=== PATIENT | male | born 1960 | race Caucasian/White ===

== ENCOUNTER 2025-02-12 07:44 | Day surgery (SDC) | payer BC, SELFPAY ==
[2025-01-21 11:09] VITALS: BMI 37.4
--- NOTE | 2025-01-21 11:14 | HPS.HSE ---
Family Physician
-
Family Physician: NOT KNOW UNKNOWN - PT DOES
Chief Complaint
-
Persistent atrial fibrillation.
History of Present Illness
The patient is a 64 year old male presenting today for persistent atrial fibrillation. The patient is relatively asymptomatic with this diagnosis. He previously underwent 2 failed cardioversions in March 2022 and August 2022. He is on
current pharmacological therapy with Metoprolol Succinate. He overall tolerates this medication well with very little side effects reported. He reports that he has been compliant with Xarelto for oral anticoagulation. Because he would like to
minimize medical therapy and repeat cardioversions have been ineffective previously, it is recommended he proceed with pulmonary vein isolation for more definitive arrhythmia management. He denies any complaints today such as chest pain, shortness
of breath, nausea, vomiting, diarrhea, dizziness, cough, sore throat, or fever.
Medical History
Past Medical History
Past Medical History: Reports Other
Additional Past Medical History:
1. Persistent atrial fibrillation, status post cardioversion x2; pharmacological therapy with Metoprolol Succinate and oral anticoagulation with Xarelto.
2. Hypertension.
3. Left ventricular hypertrophy.
4. Obstructive sleep apnea, non-compliant with device.
5. Candidiasis of abdomen, current treatment with Fluconazole.
6. Osteoarthritis.
7. Obesity, BMI 37.4.
Past Surgical History: Reports Other
Additional Past Surgical History:
1. Cardioversion x2.
2. Right knee resurfacing.
3. Right knee arthroscopy x2.
Social History
Tobacco: Non-smoker
Alcohol: Other (Rare use reported since atrial fibrillation diagnosis. )
Personal:
Living: Other (He lives with his in a [facility] style home. )
Family History
Family History: Not pertinent
Allergies / Home Medications
Allergy/Medication List:
Home medications:
1. Metoprolol Succinate 50 mg p.o. daily.
2. Xarelto 20 mg p.o. at bedtime.
3. Fluconazole 200 mg p.o. as directed by dermatology.
Allergies: No known allergies.
Review of Systems
-
A 12 point ROS was completed and negative except as noted: Yes
Physical Exam
Vital Signs
Blood pressure 132/85. Heart rate 64. Respirations 18. Pulse ox 98% on room air.
Height 5 feet, 11.5 inches. Weight 123.4 kg. BMI 37.4.
Physical Exam
General: Well Developed, Well Nourished and No Apparent Distress
HEENT: NormoCephalic, Moist mucous membranes, Atraumatic and PERRLA
Respiratory: Clear
Cardiac: Irregular Rhythm
GI: Soft, Non Tender, Non Distended and Other (Obese. Mild rash on abdomen only. )
Musculoskeletal: No Edema and Normal Gait & Station
Skin: Warm and Dry
Neuro: AO x 3 and Nonfocal/grossly intact
Laboratory Results
-
DIAGNOSTIC STUDIES as of 01/21/2025: White blood cell count 6.6. Hemoglobin 15.2. Platelet count 202,000. PT 22.4. INR 1.92. Sodium 139. Potassium 4.1. BUN 18. Creatinine 0.8. Glucose 99. Calcium 9.5. Magnesium 2.2. AST 19. ALT 29. Albumin 4.4. Type
and screen A positive.
EKG 01/21/2025: Atrial fibrillation.
Chest CT 01/21/2025: Normal, conventional pulmonary venous anatomy. No left atrial filling defect/thrombus is identified.
Echocardiogram 07/20/2024: Left ventricular ejection fraction is 50-55%. Moderate LVH. Moderately dilated left atrium. No significant valvular abnormalities.
Impression/Plan
-
IMPRESSION/PLAN:
1. Persistent atrial fibrillation: The patient is in need of pulmonary vein isolation with Dr. Justin Polanco on 02/12/2025. The benefits and risks of the procedure have been explained to the patient. The patient understands these risks and wishes to
proceed. He will not be required to undergo a pre-procedural transesophageal echocardiogram as he has been compliant with his home oral anticoagulation. He is aware to continue his Xarelto uninterrupted prior to his procedure. He will take no
medications the morning of his ablation.
2. Candidiasis of abdomen: The rash is non-bothersome to the patient. He, thankfully, does not have it around his groin. 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 The patient is noticing a significant
improvement of his abdominal rash with his current treatment. He was advised to continue treatment until his prescription is finished. His rash is expected to clear up prior to his surgical date.
[2025-01-21 11:44] LABS: Hematocrit 46.0 % (39.0-52.0); Hemoglobin 15.2 g/dL (13.0-18.0); Mean Corp Hgb Conc. 33.0 g/dL (33.0-37.0); Mean Corpuscular Volume 93.9 fL (80.0-94.0); Nucleated Red Blood Cells % 0 % (-); Platelet Count 202 10^3/uL (130-400); Red Cell Dist. Width 12.9 % (11.5-14.5)
[2025-01-21 11:54] LABS: INR 1.92; PT 22.4 Sec (11.4-14.6)
[2025-01-21 11:55] LABS: ALT (SGPT) 29 U/L (0-50); AST (SGOT) 19 U/L (17-59); Albumin 4.4 g/dl (3.5-5.0); Alkaline Phosphatase 48 U/L (38-126); Blood Urea Nitrogen 18 mg/dl (9-20); Calcium 9.5 mg/dl (8.4-10.2); Carbon Dioxide 27 mmol/L (22-30); Chloride 107 mmol/L (98-107); Estimated Creatinine Clearance 122 ml/min; Glucose 99 mg/dl (70-99); Magnesium 2.2 mg/dl (1.6-2.3); Potassium 4.1 mmol/L (3.5-5.1); Sodium 139 mmol/L (135-145); Total Protein 7.4 g/dl (6.3-8.2); eGFR > 60.00
[2025-02-12] VITALS (11 sets, daily range): BP systolic 85–159; BP diastolic 60–95; BMI 36.4
[2025-02-12 11:59] LABS: ACT-LR - POC 350 Seconds (116-155)
[2025-02-12 12:19] LABS: ACT-LR - POC 324 Seconds (116-155)
--- NOTE | 2025-02-12 12:37 | ITS.CL.ABL ---
Guest Service Supervisor - Ablation
Ablation
Procedure Report:
ELECTROPHYSIOLOGY ABLATION STUDY
DATE:: 02/12/2025�����������������������������REFERRING: Dr. Maco Gardiner
INDICATION: Longstanding persistent supraventricular tachycardia in the form of atrial fibrillation.
HISTORY: See H and P. Longstanding persistent atrial fibrillation
ANTIARRHYTHMIC DRUG: Metoprolol
PRE-PROCEDURE YANNI: No intracardiac thrombus
PRESENTING RHYTHM: Atrial fibrillation
'TIME-OUT':��called and confirmed.
SEDATION/ANESTHESIA:��provided via the anesthesia department using general anesthesia (LMA).
INTRAVENOUS/ARTERIAL ACCESS:
Right femoral venous - 8Fr
Left femoral venous - 8 Fr, 6 Fr
Ultrasound guidance for bilateral femoral vein access was utilized by me to obtain access with demonstration of normal anatomy
CHADS-VASC Score:
HAS-Bled Score
PROCEDURE:
1.��A decapolar CS catheter was placed within the CS for mapping and pacing.��This was also used as the reference catheter for the 3-D map.
2. The intracardiac ultrasound catheter was positioned in the RA to identify the FO for targeting of transseptal puncture, assist��in identification of the pulmonary vein ostia, monitoring pre and post ablation pulmonary vein flow velocities,
monitoring for 'bubble' formation during RF application as a sign of thermal injury,��and to monitor for pericardial effusion during mapping and ablation procedure.���Left atrial size, LV ejection fraction, and pulmonary vein flows were monitored
pre and post ablation procedure. The other valves were inspected and found to be free of significant regurgitation or stenosis.
3.��Half of the calculated heparin bolus was administered prior to the first transeptal puncture.��Transseptal puncture was performed to diagnose RA and LA pressure so that safety of LA mapping and ablation could be further assessed, and to access
the left atrium and pulmonary veins for mapping and ablation.��This entailed advancing an 16.8 Spanish RF wire, sheath with dilator into the superior vena cava and withdrawing both (monitoring intracardiac ultrasound, fluoroscopy and tip pressure)
with the tip oriented toward the atrial septum.��The fossa ovalis was engaged (indicated by sudden displacement of the sheath tip as well as tenting of the fossa seen on intracardiac ultrasound).��Left atrial access required a pass with the
Brockenbrough needle extended.��Left atrial catheter position was confirmed by pressure monitoring (RA mean pressure 8 mm Hg and LA mean pressure 14 mm Hg), LA saturation (99%),��as well as fluoroscopy.��The sheath was advanced over the dilator and
positioned in the left atrium.��This procedure was repeated for the Agilis sheath.��The remainder of the calculated heparin bolus was administered and heparin was
infused to maintain ACT at 300 -350 seconds throughout the case.
4.��RA pacing was performed via the proximal decapolar poles and LA pacing was performed via the distal decapolar poles.
5. A quadrapolar catheter was first positioned at the His position for His Bundle recording which was tagged via the 3-D Navex sytem, and then passed to the RVA for RV pacing and recording.
6. The Penta spline catheter and the grid catheter placed in each of the LIPV, LSPV, RSPV and the RIPV.��
7.��Next, a 3-D map was created using Navex.���A 3-D reconstructed CT image was compared to the 3-D Navex map to assist in anatomic interpretation, mapping and ablation.��The CT image and the NavX image were fused.
8. A total of 57 lesions were given and all of in basket pose to the pulmonary veins and flower pose to the roof posterior wall and floor of left atrium with a roof or floor line. Atrial fibrillation persisted beyond the pulmonary vein isolation
with entrance block and the LA roof, posterior wall substrate and inferior line from left inferior pulmonary vein to right and for pulmonary vein was fashioned in flower pose. Atrial fibrillation persisted and the patient was converted to sinus
rhythm with 300 J synchronized biphasic shock. Entrance and exit block was confirmed in all 4 pulm veins as well as the roof posterior wall and floor of the left atrium. The patient was noninducible for other tachyarrhythmias post procedure.
9. Normal sinus node and AV node function noted 0.2 mg of glycopyrrolate was given post transseptal puncture
TOTAL FLOURO TIME: 14.1 minutes
TOTAL RF DURATION: 0 minutes
REVERSAL OF HEPARIN: 35 mg of protamine, slow IV administration
COMPLICATIONS:
None
Intracardiac US shows no pericardial effusion post ablation.
SUMMARY:��
Complex left atrial mapping and ablation.
Isolation of all 4 pulmonary veins with entrance and exit block as well as the LA roof posterior wall and floor of the left atrium with entrance and exit block.
RECOMMENDATIONS:
1. Ambulate in 4 hours
2. Resume anticoagulation
3.� Consider same-day discharge
4.��Outpatient follow-up with Dr. Maco Gardiner
Copy to: Dr. Maco Gardiner
--- NOTE | 2025-02-12 16:52 | W.PN.UPDATE ---
Update Note
Progress Note Update
64 yo WM s/p PVI (Same day). He denies cp, sob, shmuel diet, voiding, EKG SR, b/l groins c/d/i no HT. He will resume Xarelto in am as he took it this morning. He will continue metoprolol xl 50mg. Activity restrictions reviewed. He will f/u Dr. Gardiner.
He is for d/c home after 5pm.
== END 2025-02-12 16:58 | disposition home or self-care (01) ==
LOC: CATH 07:44
PROVIDERS: ATTENDING PHYSICIAN Internal Medicine Cardiovascular Disease; OTHER PHYSICIAN Internal Medicine Cardiovascular Disease
DX: I48.11 Longstanding persistent atrial fibrillation (principal); I47.10 Supraventricular tachycardia, unspecified; B37.9 Candidiasis, unspecified; E66.9 Obesity, unspecified; G47.33 Obstructive sleep apnea (adult) (pediatric); I10 Essential (primary) hypertension; I44.0 Atrioventricular block, first degree; Z68.37 Body mass index [BMI] 37.0-37.9, adult; M19.90 Unspecified osteoarthritis, unspecified site; Z79.01 Long term (current) use of anticoagulants; Z79.899 Other long term (current) drug therapy
CPT/HCPCS: C1892; C1769; C1732; C1894; C1730; 36415; 75572; 80053; 83735; 85025; 85347; 85610; 86850; 86900; 86901; 93005; 93656; 93657; C1733; C1766; Q9967

== ENCOUNTER 2025-02-13 23:26 | Inpatient (IN) | payer BC, SELFPAY ==
[2025-02-13 16:45] VITALS: BP 117/64; BP 119/64
[2025-02-13 17:09] LABS: Hematocrit 41.2 % (39.0-52.0); Hemoglobin 13.7 g/dL (13.0-18.0); Mean Corp Hgb Conc. 33.3 g/dL (33.0-37.0); Mean Corpuscular Volume 94.3 fL (80.0-94.0); Nucleated Red Blood Cells % 0 % (-); Platelet Count 194 10^3/uL (130-400); Red Cell Dist. Width 13.5 % (11.5-14.5)
[2025-02-13 17:25] LABS: ALT (SGPT) 25 U/L (0-50); AST (SGOT) 45 U/L (17-59); Albumin 4.4 g/dl (3.5-5.0); Alkaline Phosphatase 45 U/L (38-126); Blood Urea Nitrogen 23 mg/dl (9-20); Calcium 9.2 mg/dl (8.4-10.2); Carbon Dioxide 27 mmol/L (22-30); Chloride 107 mmol/L (98-107); Glucose 107 mg/dl (70-99); Potassium 4.3 mmol/L (3.5-5.1); Sodium 139 mmol/L (135-145); Total Protein 7.1 g/dl (6.3-8.2); eGFR > 60.00
[2025-02-13 17:50] LABS: Troponin I 4.200 ng/ml
[2025-02-13 19:08] VITALS: BMI 36.9
--- NOTE | 2025-02-13 19:14 | ED.GENMED ---
History of Present Illness
General
Chief Complaint: Chest Pain
Time Seen by Provider: 02/13/25 19:02
Nursing documentation reviewed up to this point in time: agreed with
History of Present Illness
History of Present Illness:
58 sexual male presents the ER for evaluation of squeezing chest pain in both anterior and posterior chest with exertion throughout the day today. Patient is 1 day status post ablation with Dr. Polanco for atrial fibrillation. He states that prior
to this procedure he did not experience any symptoms with episodes of A-fib, nor has he had any prior personal history of ACS. He states that he is also noted throughout the day today intermittent feeling of a waviness to the vision in his left eye
only which seems to be provoked more with activity. At time of evaluation he has no chest pain. He reports dyspnea with exertion, none at the current time. He denies peripheral edema. No syncope or trauma. He is on anticoagulation with Xarelto.
He denies abdominal pain, paresthesias or weakness to his extremities
Review of Systems
Review of Systems
Allergies reviewed?: Yes
Phy Exam
Physical Exam
Physical Exam:
Patient is awake, alert, appears in no acute distress, head is NCAT, PERRL, EOMI mucous membranes moist, conjunctiva pink, heart regular rate and rhythm without murmurs or ectopy,, no JVD, lungs are clear to auscultation without wheezes rales or
rhonchi, no JVD, abdomen is soft and nontender on palpation, extremities without edema, 2+ DP and radial pulses symmetric, moving all extremities symmetrically without focal deficit, GCS is 15
Scores
Heart Score for Chest Pain Patients
STEMI patient?: No
History: Highly Suspicious
ECG: Normal
Age: >/= 65 years
Risk Factors: No Risk Factors
Troponin: >/= 3 x Normal Limit
Heart Score for Chest Pain Patients: 6
Heart Score Risk: 20.3% MACE over next 6 weeks
Course
Orders/Labs/Results
Orders:
Orders
02/13/25 16:41
ECG [Electrocardiogram (*1)] Urgent
Reason for Study: Chest Pain
EKG- Treatment ONCE
02/13/25 16:55
Complete Blood Count/With Diff Urgent
Comprehensive Metabolic Panel Urgent
Troponin I Urgent
02/13/25 19:03
Electrocardiogram (*1) Urgent
Reason for Study: Chest Pain
EKG- Treatment ONCE
CR Chest Portable - 1 View Urgent
Comment:
Reason For Exam: chest pain
Reason Study Needs to be Portable: Unable to Transport
02/13/25 19:25
CT Head & Neck Angio W/wo IV Urgent
Comment: affecting L eye only, 1 day s/p ablation for afib
Reason For Exam: intermittent visual disturbance
02/13/25 19:29
Troponin I Urgent
02/13/25 21:14
Heparin 4,000 units IV NOW STA
Nursing to Place Non Medication Order As Directed
Physician Order: PTT 6 hours after initial start of Heparin infusion
Above order entered?: Yes
02/13/25 21:15
Heparin 48618 Units/250 ml 25,000 units in 250 ml IV PER PROTOCOL
Weight to be used for heparin protocol in kilograms (kg):: 123.2
Protocol:: Cardiac Tx/Acute Coronary
PTT Goal Range to be used:: PTT 73 to 111 seconds
Order type:: Initial
INITIAL Infusion Dose (UNITS/KG/hr) & then follow protocol:: 12 units/kg/hr
Infusion Dose in UNITS/hr & then follow protocol (UNITS/hr):: 1,000
INFUSION RATE in mL/hr & then follow protocol (mL/hr):: 10
PTT less than or equal to 64 seconds:: Increase rate by 200 units/hr (+ 2 mL/hr)
PTT 64.1 to 72.9 seconds:: Increase rate by 100 units/hr (+ 1 mL/hr)
PTT 73 to 111 seconds:: Target Range. No change in rate.
PTT 111.1 to 130.9 seconds:: Decrease rate by 100 units/hr (- 1 mL/hr)
PTT 131 to 199.9 seconds:: HOLD for 1 hr. Then decrease rate by 200 units/hr (- 2 mL/hr)
PTT greater than or equal to 200 seconds:: HOLD for 2 hrs & Notify Provider. Then decrease by 200 units/hr (-
2 mL/hr)
Lab follow-up:: Each change, PTT q6h until 2 consecutive are therapeutic. Then PTT
daily.
02/13/25 21:17
PTT Urgent
Comment: Obtain baseline before beginning heparin infusion if not already collected
02/14/25 03:40
PTT Urgent
Comment: Obtain baseline before beginning heparin infusion if not already collected
Abnormal Lab Results
02/13/25 02/13/25
16:55 19:29
WBC 14.2 H 10^3/uL
(4.8-10.8)
RBC 4.37 L 10^6/uL
(4.70-6.10)
MCV 94.3 H fL
(80.0-94.0)
MCH 31.4 H pg
(27.0-31.0)
Abs Immat Gran (auto) 0.1 H 10^3/uL
(0-0.05)
Absolute Neuts (auto) 11.4 H 10^3/uL
(1.4-6.5)
Absolute Monos (auto) 0.9 H 10^3/uL
(0.1-0.6)
Neutrophils % 80.5 H %
(42.2-75.2)
Lymphocytes % 11.2 L %
(20.5-51.1)
BUN 23 H mg/dl
(9-20)
Glucose 107 H mg/dl
(70-99)
Troponin I 4.200 H* ng/ml 4.110 H* ng/ml
02/13/25 16:55
02/13/25 16:55
Vital Signs
Initial and Last Documented VS:
Initial Vital Signs
Temp Pulse Resp BP Pulse Ox
97.9 F 76 16 117/64 99
02/13/25 16:45 02/13/25 16:45 02/13/25 16:45 02/13/25 16:45 02/13/25 16:45
Last Documented Vital Signs
Temp Pulse Resp BP Pulse Ox
97.9 F 58 12 122/70 100
02/13/25 16:45 02/13/25 21:45 02/13/25 21:45 02/13/25 21:00 02/13/25 21:45
MDM/Problems Addressed
Differential Diagnosis Includes:
Differential diagnosis to consider but not limited to TIA, ACS, dehydration, intracranial hemorrhage along with other etiologies considered
Chronic conditions affecting care:
Atrial fibrillation status post ablation on anticoagulation
*Radiology
Radiology exam reviewed: preliminary read by ED provider (I independent viewed interpreted peripheral chest x-ray showing normal cardiac silhouette, no focal infiltrates)
*Pulse Oximetry
SaO2: 100
Oxygen Mode of Delivery: Room air
Patient hypoxic: no
*EKG
Interpreted by ED Provider?: Yes (Independent viewed and interpreted 12 EKG showed sinus rhythm with first-degree AV block, no ectopy, rate 79, normal axis, no ST elevation, this is a minimally abnormal tracing without evidence for acute STEMI. No
change compared to prior from 02/12/2025)
*Tornado Chaser Interpretation
Rate: normal (I independently viewed and interpreted rhythm strip showing sinus rhythm with first-degree AV block, no ectopy)
*Critical Care Note
Total Time (30-74mins, 75-104mins- exclusive of procedures): Not Applicable
Update Note
Update Note:
1909: I reviewed full patient presentation, history, EKG and initial troponin with on-call cardiology attending, Dr. Haney. He would feel that troponin is likely related to recent procedure, but would recommend admission for heparin initiation
and trending of troponins. Given described visual disturbance, will obtain CT angio of head and neck to assess for stroke/TIA prior to initiation of heparin drip.
Late entry-once all test results available including CT angio head and neck, I reviewed this information with the patient and present at bedside. I discussed with them the need for admission for anticoagulation and further evaluation. They
agree. Patient has no chest pain at time of reevaluation. Repeat EKG does not show any evidence for ST elevation. I reviewed full patient presentation with the hospitalist who accepts patient for admission for further evaluation of chest pain
with elevated troponins and TIA.
ED Attending Note
-
Portions of this chart may have been created with voice recognition software.� Occasional wrong word or��sound alike� substitutions may have occurred due to the inherent limitations of voice recognition software.
Discharge Plan
Departure
Patient Disposition: Admit
Date of Disposition: 02/13/25
Time of Disposition: 21:45
Presentation/result/management discussed w/ accepting MD/DO: Hospitalist
Discharge Problem:
Chest pain, Elevated troponin I level, Monocular visual disturbance
Prescriptions:
No Action
metoprolol succinate 50 mg Capsule,Sprinkle,Er 24hr
50 mg PO DAILY
Xarelto 20 mg Tablet
20 mg PO DAILY Qty: 0 0RF
Referrals:
UNKNOWN - PT DOES,NOT KNOW [Family Provider]
Interventions
Interventions:
*Risk Screen - Suicide Last Done: 02/13/25 16:45
*General Assessment Last Done: 02/13/25 16:50
*Neglect/Abuse Screening Last Done: 02/13/25 16:50
*ED- Fall Risk Assessment Last Done: 02/13/25 19:08
*ED COVID-19 Vaccine History Last Done: 02/13/25 19:08
ED- Cardiac Assessment Last Done: 02/13/25 19:08
Discharge Date and Time
Print Language: NIGERIEN
[2025-02-13 20:02] VITALS: BP 124/68
[2025-02-13 20:11] LABS: Troponin I 4.110 ng/ml
[2025-02-13 21:00] VITALS: BP 122/70
[2025-02-13] MEDS: HEPARIN 4000 UNITS IV (21:34)
[2025-02-13] MEDS: HEPARIN 25000 UNITS/250 ML IV (21:35)
[2025-02-13 21:41] LABS: APTT 28.8 Sec (23.4-35.0)
[2025-02-13 22:00] VITALS: BP 105/70
--- NOTE | 2025-02-13 22:15 | HPS.HSE ---
Family Physician
-
Family Physician: NOT KNOW UNKNOWN - PT DOES
Chief Complaint
-
Chest pain
History of Present Illness
64-year-old male with history of A-fib only cardiac ablation yesterday here in the hospital and strong family supplements coronary artery disease father in 50s from myocardial infarction, presented to the hospital today after he was home when
walking around and developed sudden pain moderately severe centrally located radiating to the back between the shoulder blade after a short walk and when he stopped and rested the pain eventually went away, and he had to walk home with like an
uphill with his dog few steps by the time he mated up to his porch the pain came back when he sat down on the porch and disappear again, denied any associated sweating or nausea or vomiting or any other relieving or aggravating factor, admitted when
he sat down on the porch she had some tweaking and change of vision in the left eye without any weakness or numbness in extremity no palpitation no any dizziness, no urinary or bowel symptoms.
Therefore he decided to come to the hospital where CT brain and CTA head and neck showed no acute abnormality while troponin of more than 4, cardiology contacted by the ER physician who recommended holding his Xarelto and starting heparin drip.
Currently awake, alert and oriented x 3 and able to provide little information and asymptomatic and accompanied by the at the bedside.
Medical History
Past Medical History
Past Medical History: Reports Other
Additional Past Medical History:
Past medical history:
A-fib
Hypertension
Strong family history of premature coronary artery disease
Surgical history:
Cardiac ablation on February 12, 2025
Right knee arthroscopy
Social history: lives with the independently, no smoking or drug use drinks alcohol once a month.
Family history: Reviewed and strongly positive for premature coronary artery disease, hypertension
Past Surgical History: Reports Other
Social History
Unable to obtain full social history at this time due to: Other
Family History
Family History: Other
Allergies / Home Medications
Allergies reflects when Allergies were last updated in [facility].
Home Medications with original date entered in [facility]
Allergy/Medication List:
Allergies
Allergy/AdvReac Type Severity Reaction Status Date / Time
No Known Allergies Allergy Unverified 02/12/25 08:03
Home Medications
metoprolol succinate 50 mg capsule sprinkle, ext. release 24 hr 50 mg PO DAILY 01/19/25
rivaroxaban 20 mg tablet (Xarelto) 20 mg PO DAILY #0 tabs 02/12/25
Review of Systems
-
A 12 point ROS was completed and negative except as noted: Yes
Physical Exam
Vital Signs
Vital Signs
Temp Pulse Resp BP Pulse Ox
97.9 F 79 15 105/70 100
02/13/25 16:45 02/13/25 22:00 02/13/25 22:00 02/13/25 22:00 02/13/25 21:45
Physical exam:
General: Awake, alert and oriented x3, overweight not in distress and holds appropriate conversation.
HEENT: No active discharge, ecchymosis or bruising, moist lips, tongue and mucous membrane.
Eyes: No discharge or red conjunctiva, no nystagmus, pupils are reactive and equal
Neck:Supple, no JVD no bruit no goiter.
Respiratory: Normal AP contour and diameter, normal chest wall movement, normal respiratory effort, no respiratory distress,
Lungs: Good air entry bilaterally, no wheezing or rhonchi, no rales or crackles
Heart: S1, S2 regular, normal rate, no added sound.
Gastrointestinal: Positive bowel sounds, soft, nontender, globular, no guarding or rigidity or organomegaly
Musculoskeletal: , no chest wall abnormality or tenderness. All joints and extremities have good range of motion, no muscle tenderness or any joint swelling or tenderness.
Extremities: No pitting edema, good peripheral pulses, good range of motion
Skin: Warm and dry, no ulceration, normal color.
Neurological: Awake, alert and oriented x3, cranial nerve II-XII grossly intact, speech clear and comprehensive, good muscle tone, normal sensory and motor function, no facial droop, extension and attention intact, cerebellar sign intact, NIH score 0
Psychiatric: Normal mood, normal thought and judgment, normal affect,
Physical Exam
General: Other
Laboratory Results
-
02/13/25 16:55
02/13/25 16:55
Laboratory Results
APTT 28.8 Sec (23.4-35.0) 02/13/25 21:17
Total Bilirubin 0.6 mg/dl (0.2-1.3) 02/13/25 16:55
AST 45 U/L (17-59) 02/13/25 16:55
ALT 25 U/L (0-50) 02/13/25 16:55
Alkaline Phosphatase 45 U/L (38-126) 02/13/25 16:55
Troponin I 4.110 ng/ml H* 02/13/25 19:29
CT Brain: No acute intracranial process. Specifically, no evidence of acute hemorrhage.
CTA Head: No significant arterial stenosis. No large vessel occlusion. No aneurysm.
CTA Neck: No significant arterial stenosis. Mild atherosclerotic calcifications of the bilateral carotid bifurcation without significant stenosis.
4 mm groundglass opacity within the apical right upper lobe which is nonspecific and may be infectious/inflammatory in nature. A 6-12 month follow-up CT chest may be considered if the patient is considered high risk.
Chest x-ray: No acute cardiopulmonary abnormality
EKG done and reviewed shows sinus rhythm with first-degree AV block, rate around 69, PA 302, QT 408 otherwise no acute abnormalities
Data Reviewed
-
Diagnostic Radiology: Image Personally Visualized and interpreted, Discussed with Patient and Discussed with Family
CT Scan: Image Personally Visualized and interpreted, Discussed with Patient and Discussed with Family
Medical Tests (Nuc Med, Echo, EKG etc): Image Personally Visualized and interpreted and Report Reviewed by me
Lab Data: Labs Reviewed by me, Discussed with Patient and Discussed with Family
Old Records: Reviewed
Impression/Plan
-
IMPRESSION:
64-year-old male who had a cardiac ablation yesterday, today presented to the hospital complaining of couple episode of centrally located moderate intensity chest pain short-lived and relieved after rest both condition workup showed elevated
troponin and had some vision changes currently concerning for TIA or stroke specially after ablation.
Acute chest pain:
His symptoms can concerning
Acute coronary syndrome may need to be considered rule out specially with family history of premature coronary artery disease and other risk factor
Started on heparin drip per pasteuriser operator recommendation
Continue Toprol
On aspirin and statin
Check lipid panel and A1c
Monitor vital sign and monitor for any kind of bleeding
Hold his Xarelto
Defer further workup to cardiology.
Elevated troponin: Possibly related to acute coronary syndrome while post ablation could be a possibility.
Vision change in the left eye, with yesterday having arterial access and history of A-fib was therefore concern for thromboembolization or lead to a stroke or TIA need to be considered
CTA head and neck and CT brain all showed no acute abnormality
Get MRI of brain to complete the workup.
A-fib: Status post ablation yesterday
Continue Toprol
Hold Xarelto while he is on heparin drip.
All discussed with the patient and the in detail and expressed understanding of the question answered
CODE STATUS full code
[2025-02-13 23:00] VITALS: BP 118/82
[2025-02-14] VITALS (14 sets, daily range): BP systolic 89–150; BP diastolic 41–92; PULSE 60–78; BMI 36.9; BMI 36.7
[2025-02-14 00:05] LABS: Troponin I 3.790 ng/ml
--- NOTE | 2025-02-14 02:18 | PTCARENOTE ---
received pt from ED. Pt aaox3 able to make needs known. Pt states that his chest pain has resolved. No complaints of pain at this time. Remains on heparin gtt @10ml/hr. Next PTT due at 03:40. NIH 0, states that the blurred vision in his L eye has
resolved as well. No other neurological deficits. MRI in AM. VSS. NSR/SB on monitor. Pt resting comfortably in bed at this time. Care ongoing.
[2025-02-14 04:36] LABS: Hematocrit 37.0 % (39.0-52.0); Hemoglobin 12.5 g/dL (13.0-18.0); Mean Corp Hgb Conc. 33.8 g/dL (33.0-37.0); Mean Corpuscular Volume 93.4 fL (80.0-94.0); Platelet Count 165 10^3/uL (130-400); Red Cell Dist. Width 13.7 % (11.5-14.5)
[2025-02-14 04:40] LABS: APTT 32.8 Sec (23.4-35.0)
[2025-02-14 04:59] LABS: Blood Urea Nitrogen 25 mg/dl (9-20); Calcium 8.9 mg/dl (8.4-10.2); Carbon Dioxide 25 mmol/L (22-30); Chloride 110 mmol/L (98-107); Estimated Creatinine Clearance 123 ml/min; Glucose 106 mg/dl (70-99); HDL Cholesterol 29 mg/dl; LDL Cholesterol, Calculated 97 mg/dl; Potassium 3.8 mmol/L (3.5-5.1); Sodium 140 mmol/L (135-145); Very Low Density Lipoprotein 28 mg/dl (0-30); eGFR > 60.00
[2025-02-14 05:11] LABS: Troponin I 4.400 ng/ml
--- NOTE | 2025-02-14 08:31 | W.PN.HOSP.TC ---
Today's Communication/Plan
-
transfer to IVU
workup per cards
Assessment / Plan
Assessment / Plan
pt is a 64 year old male
NSTEMI--apprec cards--transfer to IVU--holding xarelto and now on heparin drip--troponin still above 4--further w/u per cards--check lipids--cont toprol, asa, statin
Vision change in the left eye, with yesterday having arterial access and history of A-fib was therefore concern for thromboembolization or lead to a stroke or TIA need to be considered--all workup negative--resolved
presumed persistent A-fib: Status post ablation 02/12/25--toprol, heparin drip--transfer to IVU
CODE STATUS -- full code
Anticipated Discharge: > 48 hours
Subjective/Interval History
-
Date of Service: February 14, 2025
pt only has symptoms when he walks
Objective Data
-
Labs:
Laboratory Results
02/13/25 02/14/25 02/14/25
21:17 03:58 11:00
WBC 9.7
Hgb 12.5 L
Hct 37.0 L
Plt Count 165
APTT 28.8 32.8 Pending
Sodium 140
Potassium 3.8
Chloride 110 H
Carbon Dioxide 25
BUN 25 H
Creatinine 0.8
Glucose 106 H
Calcium 8.9
Vital Signs:
max temp for 24 hours
02/13/25
16:45
Temp 97.9 F
Vital Signs
Temp Pulse Resp BP Pulse Ox
97.8 F 62 18 93/61 97
02/14/25 04:35 02/14/25 06:35 02/14/25 06:35 02/14/25 06:35 02/14/25 06:35
I&O
02/13/25 02/14/25 02/15/25
06:59 06:59 06:59
Output Total 1000 / 1000
Balance -1000 / -1000
Review of Systems
-
All other systems: Reviewed and negative
Physical Exam
-
General: Well Developed, Well Nourished and No Apparent Distress
HEENT: Normocephalic and Atraumatic; Negative Oxygen
Respiratory: Clear to Auscultation; Negative Wheezes or Rhonchi
Cardiac: Regular Rhythm and S1/S2; Negative Murmur
GI: Soft, Nontender, Nondistended and Normal Bowel Sounds
Musculoskeletal: No Clubbing, No Cyanosis and No Edema
Neuro: Awake
[2025-02-14 09:18] LABS: Glycohemoglobin (HgbA1c) 5.7 % (4.0-5.6)
--- NOTE | 2025-02-14 09:45 | CON.CAR ---
Consultation
Consultation Request
Date/Time Consultation Requested: 02/13/25
Date/Time Consultation Performed: 02/14/25
Requesting Provider: Jose
Performing Provider: Angie
Reason for Consultation: chest pain
Medical History
-
Chief Complaint: chest pain
History of Present Illness:
64-year-old man past medical history of persistent atrial fibrillation who underwent pulmonary vein isolation earlier this week who presented to [place] emergency department for evaluation of chest discomfort. Patient tells me he was feeling
well on the morning of 02/13/2025. He was working around his property and in the backyard and developed exertional chest and back discomfort. Describes this more so as a tightness or pressure, more so in the back than the chest. He rested and his
symptoms resolved. However when he started to exert himself symptoms recurred. He also had associated blurry vision in the left eye which he tells me he has experienced in the past. Given the constellation of symptoms he presented to [facility]
emergency department for evaluation.
Initial troponin was found to be elevated 4.2 and then downtrended. However multiple troponins were tracked and most recently 4.40. ECG showed sinus rhythm with no obvious ischemic changes. Chest x-ray was unremarkable. Given vision changes CTA
head/neck was performed and was not suggestive of acute CVA.
At the time my evaluation patient was resting comfortably in the IMU. He is not having any further chest discomfort. Vision changes have resolved.
Tells me no associated dyspnea, orthopnea/PND or lower extremity edema over the past few days.
PMHx:
A-fib s/p PVI (02/12/25)
Hypertension
Right knee arthroscopy
Past Medical History
Past Medical History: Other (as above)
Past Surgical History: Other (as above)
Social History
Tobacco: Non-Smoker
Alcohol: Occasional
Personal:
Living: With Family
Family History
Family History: CAD
Allergies / Home Medications
Allergy/AdvReac Type Severity Reaction Status Date / Time
No Known Allergies Allergy Unverified 02/12/25 08:03
�Medication �Instructions �Recorded �Confirmed �Type
metoprolol succinate 50 mg capsule 50 mg PO DAILY 01/19/25 02/13/25 History
sprinkle, ext. release 24 hr
rivaroxaban 20 mg tablet (Xarelto) 20 mg PO DAILY #0 tabs 02/12/25 02/13/25 Rx
Review of Systems
-
History Source: Patient
All other systems: Negative unless noted
Physical Exam
Vital Signs
Temp Pulse Resp BP Pulse Ox
97.9 F 54 10 105/71 96
02/14/25 07:52 02/14/25 08:00 02/14/25 08:00 02/14/25 08:00 02/14/25 08:00
Lab Results
02/14/25 03:58
02/14/25 03:58
Troponin I 4.400 ng/ml H* 02/14/25 03:58
Troponin I Cancelled 02/14/25 03:58
Physical Exam
General: Well Developed
HEENT: Normocephalic
Respiratory: Clear
Cardiac: S1/S2 and Regular Rhythm
GI: Soft
Musculoskeletal: No Edema
Skin: Warm and Dry
Neuro: AO x 3
Psych: Calm
Impression / Plan
-
Tube Skiver: Abdifatah
EP: Polanco
Assessment:
Chest pain
Elevated troponin
A-fib s/p PVI (02/12/25)
Hypertension
Plan:
-Patient presents with chest discomfort following ablation. As would be expected post ablation troponin is elevated and overall relatively flat.
-Most common explanation for his symptoms would be inflammation following PVI ablation - essentially iatrogenic myocarditis. However, differential includes coronary artery spasm, thromboembolism of a coronary artery, acute CHF or Type 1 SD.
-For now would treat medically for ACS with aspirin, high intensity statin, beta-hayley and heparin drip x 48 hours
-Check transthoracic echocardiogram to evaluate for cardiomyopathy, segmental wall motion abnormality or pericardial effusion
-For completeness add proBNP to lab work although no clear evidence of decompensated heart failure based on physical exam
-Plan for ischemic evaluation prior to discharge. Tentatively pharmacologic nuclear stress test on Sunday for further risk stratification. Patient would be hesitant to undergo coronary angiography based on our discussion this morning.
Data Reviewed
-
EKG: Tracing Personally Visualized and interpreted
Radiology: Image Personally Visualized and interpreted
CT Scan: Report Reviewed by me
Medical Tests (Nuc Med, Echo etc): Report Reviewed by me
Labs: Labs Reviewed by me
Old Records: Reviewed
[2025-02-14] MEDS: TOPROL XL 50 MG PO (10:05)
[2025-02-14] MEDS: LOW STRENGTH ASPIRIN 81 MG PO (10:05)
--- NOTE | 2025-02-14 11:12 | PTCARENOTE ---
Rec'd report from [facility] on IMU, Pt transferred to IVU, A,A+OX3, denies chest pain, denies vision issues. VSS.
[2025-02-14 11:23] LABS: APTT 39.6 Sec (23.4-35.0)
[2025-02-14 11:50] LABS: Troponin I 4.280 ng/ml
--- NOTE | 2025-02-14 12:15 | PTOTSP ---
Speech-Language Evaluation
Pt seen in room for bedside swallow assessment with HOB elevated. Pt seen with PO trials of regular solids and thins (via open cup and straw). Oral phase WFL with adequate acceptance, functional mastication, bolus formation, ap transfer, and oral
clearance. Pharyngeal phase characterized by no overt s/sx of aspiration, clear vocal quality, and no breath changes. Pt is not at an increased risk of aspiration at this time.
Recommendation:
1.IDDSI 7 Regular solids, IDDSI 0 Thin liquids
2. Meds as best tolerated
[2025-02-14] MEDS: CRESTOR 20 MG PO (17:47)
[2025-02-14 18:42] LABS: APTT 41.0 Sec (23.4-35.0)
--- NOTE | 2025-02-15 01:00 | PTCARENOTE ---
Received pt @ change of shift. AAOx3, VSS-- SB with first degree, occasional PACs on monitor. OOB in chair; bedside. Heparin gtt running @ 1400 units/hr through left AC. Neuro check- normal, NIHSS-- normal. L groin site SANDI. R groin site clean,
dry, and intact. Denies any pain or vision changes @ this time. Discussed plan of care. Pt verbalizes understanding. Call alston within reach.
[2025-02-15 02:37] VITALS: BP 122/82
[2025-02-15 02:49] LABS: Hematocrit 37.7 % (39.0-52.0); Hemoglobin 12.5 g/dL (13.0-18.0); Mean Corp Hgb Conc. 33.2 g/dL (33.0-37.0); Mean Corpuscular Volume 93.1 fL (80.0-94.0); Platelet Count 149 10^3/uL (130-400); Red Cell Dist. Width 13.7 % (11.5-14.5)
[2025-02-15 02:54] VITALS: BMI 36.6
[2025-02-15 02:59] LABS: APTT 63.2 Sec (23.4-35.0)
[2025-02-15 03:12] LABS: Troponin I 2.070 ng/ml
[2025-02-15 03:30] LABS: ALT (SGPT) 39 U/L (0-50); AST (SGOT) 28 U/L (17-59); Albumin 3.7 g/dl (3.5-5.0); Alkaline Phosphatase 43 U/L (38-126); Blood Urea Nitrogen 23 mg/dl (9-20); Calcium 8.6 mg/dl (8.4-10.2); Carbon Dioxide 27 mmol/L (22-30); Chloride 110 mmol/L (98-107); Estimated Creatinine Clearance > 125 ml/min; Glucose 98 mg/dl (70-99); Magnesium 2.2 mg/dl (1.6-2.3); Potassium 4.2 mmol/L (3.5-5.1); Sodium 140 mmol/L (135-145); Total Protein 6.2 g/dl (6.3-8.2); eGFR > 60.00
[2025-02-15 07:00] VITALS: BP 116/74
[2025-02-15] MEDS: HEPARIN 25000 UNITS/250 ML IV ×2 (07:05→19:39)
--- NOTE | 2025-02-15 08:31 | W.PN.HOSP.TC ---
Today's Communication/Plan
-
cancel MRI
for stress test tomorrow
Assessment / Plan
Assessment / Plan
pt is a 64 year old male
NSTEMI (chest pain after walking)--apprec cards--holding xarelto and now on heparin drip--troponin peaked at 4.4 now down to 2.0--further w/u per cards, plan for stress test Sunday but pt not sure he wants to undergo cath--lipids with Tchol 154 LDL
97--cont toprol, asa--statin started this admission as LDL not at goal
Vision change in the left eye, with yesterday having arterial access and history of A-fib was therefore concern for thromboembolization or lead to a stroke or TIA need to be considered--all workup negative--pt has had this vision change off and on
for years--will cancel MRI--resolved--should follow up with outpt ophthalmology
presumed persistent A-fib: Status post ablation 02/12/25--toprol, heparin drip--remains in sinus rhythm
DVT proph--heparin drip
CODE STATUS -- full code
Anticipated Discharge: > 48 hours
Subjective/Interval History
-
Date of Service: February 15, 2025
pt without c/o--asking about whether he needs a cath
Objective Data
-
Labs:
Laboratory Results
02/15/25 02/15/25
02:41 09:15
WBC 7.8
Hgb 12.5 L
Hct 37.7 L
Plt Count 149
APTT 63.2 H Pending
Sodium 140
Potassium 4.2
Chloride 110 H
Carbon Dioxide 27
BUN 23 H
Creatinine 0.7
Glucose 98
Calcium 8.6
Total Bilirubin 0.6
AST 28
ALT 39
Alkaline Phosphatase 43
Vital Signs:
max temp for 24 hours
02/14/25
15:21
Temp 98.0 F
Vital Signs
Temp Pulse Resp BP Pulse Ox
98 F 56 20 116/74 97
02/15/25 07:00 02/15/25 08:00 02/15/25 07:00 02/15/25 07:00 02/15/25 07:00
I&O
02/14/25 02/15/25 02/16/25
06:59 06:59 06:59
Output Total 1000 / 1000
Balance -1000 / -1000
Review of Systems
-
All other systems: Reviewed and negative
Physical Exam
-
General: Well Developed, Well Nourished and No Apparent Distress
HEENT: Normocephalic and Atraumatic
Respiratory: Clear to Auscultation; Negative Wheezes or Rhonchi
Cardiac: Regular Rhythm and S1/S2; Negative Murmur
GI: Soft, Nontender, Nondistended and Normal Bowel Sounds
Musculoskeletal: No Clubbing, No Cyanosis and No Edema
Neuro: Awake
Psych: Calm
[2025-02-15] MEDS: LOW STRENGTH ASPIRIN 81 MG PO (08:45)
[2025-02-15] MEDS: TOPROL XL 50 MG PO (08:45)
--- NOTE | 2025-02-15 10:12 | PTCARENOTE ---
Patient seen by Dr. Sauceda this morning and MRI, neuro checks and NIH cancelled. Patient denies any chest pain or visual disturbances. IV heparin infusing as per protocol, bilateral groins are HEATING WORKER, for stress test tomorrow.
[2025-02-15 10:23] LABS: APTT 74.6 Sec (23.4-35.0)
--- NOTE | 2025-02-15 10:40 | W.PN.CARDCBS ---
Addendum entered and electronically signed by Doreen Blackburn, 02/15/25 10:47:
Spoke with pharmacy who is reactivating heparin drip. Will continue heparin drip pending stress test. If no need for further procedures like a cardiac catheterization we will resume Xarelto on Sunday
Original Note:
Today's Communication / Plan
-
Lexiscan nuclear stress test 02/16/2025
Impression / Plan
-
Bench Technician: Abdifatah
EP: Collin
Assessment:
Chest pain
Elevated troponin
A-fib s/p PVI (02/12/25)
Hypertension
Plan:
Chest pain post ablation with elevated troponin and coronary artery calcifications on noncardiac CT imaging
-Peak troponin 4.4
-2D echocardiogram yesterday with normal biventricular size and systolic function with no obvious regional wall motion abnormalities or significant valve pathology. No pericardial effusion
-Most common explanation for his symptoms would be inflammation following PVI ablation - essentially iatrogenic myocarditis. However, differential includes coronary artery spasm, thromboembolism of a coronary artery, acute CHF or Type 1 IA.
- Will stop IV heparin. Continue high intensity statin, beta-hayley and aspirin.
-Plan for Lexiscan nuclear stress test 02/16/2025
CTA head and neck done in ED for visual disturbance was unremarkable with mild atherosclerotic calcifications of bilateral carotid bifurcations without stenosis. There is a 4 mm ground glass opacity in the right upper lobe and there is a
recommendation for a follow-up CT of the chest in 6 to 12 months.
Blood pressure stable.
History of PAF currently in sinus rhythm.
- Will continue IV heparin pending results of stress test. If no significant ischemia, resume Xarelto.
Progress Note - Bench Technician
Subjective
Date of Service: February 15, 2025
Seen and examined. Chart/telemetry reviewed. No new complaints.
Objective
Labs:
02/15/25 02:41
02/15/25 02:41
Labs
Hgb 12.5 g/dL (13.0-18.0) L 02/15/25 02:41
Hct 37.7 % (39.0-52.0) L 02/15/25 02:41
Plt Count 149 10^3/uL (130-400) 02/15/25 02:41
APTT 74.6 Sec (23.4-35.0) H 02/15/25 10:05
Sodium 140 mmol/L (135-145) 02/15/25 02:41
Potassium 4.2 mmol/L (3.5-5.1) 02/15/25 02:41
BUN 23 mg/dl (9-20) H 02/15/25 02:41
Creatinine 0.7 mg/dL (0.7-1.3) 02/15/25 02:41
Glucose 98 mg/dl (70-99) 02/15/25 02:41
Troponins
02/13/25 02/13/25 02/13/25
16:55 19:29 23:31
Troponin I 4.200 H* 4.110 H* 3.790 H*
02/14/25 02/14/25 02/14/25
03:58 03:58 11:03
Troponin I 4.400 H* Cancelled 4.280 H*
02/15/25
02:41
Troponin I 2.070 H*
Vital Signs and I&O:
Vital Signs
Temp Pulse Resp BP Pulse Ox
98 F 56 20 116/74 97
02/15/25 07:00 02/15/25 08:00 02/15/25 07:00 02/15/25 07:00 02/15/25 07:00
Vital Signs
Temp Pulse Resp BP Pulse Ox
98 F 56 20 116/74 97
02/15/25 07:00 02/15/25 08:00 02/15/25 07:00 02/15/25 07:00 02/15/25 07:00
Intake & Output
02/13/25 02/14/25 02/15/25 02/16/25
06:59 06:59 06:59 06:59
Output Total 1000 / 1000
Balance -1000 / -1000
Physical Exam
Physical Exam
General: No acute distress, AAOX3
Neck: Negative JVD
Heart: Regular, Negative S3 positive S1/S2, Negative S4, No murmur
Lungs: CTA b/l, negative wheezes/rales/rhonchi
Abd: Positive BS, NT/ND, neg rebound/rigidity/guarding
Ext:no edema
[2025-02-15 11:11] VITALS: BP 127/78
[2025-02-15 15:16] VITALS: BP 122/72
[2025-02-15 17:34] LABS: APTT 59.3 Sec (23.4-35.0)
[2025-02-15] MEDS: CRESTOR PO (17:54)
[2025-02-15 18:41] VITALS: BP 113/88
--- NOTE | 2025-02-15 21:06 | PTCARENOTE ---
Pt rec'd at change of shift oob in recliner chair with spouse at bedside. heparin infusing at 2000 unit/hr. site patent. Pt aware of npo status after mn for nuclear stress test in am. At present pt is cp free. Sinus on telemetry with first degree
heart block.
[2025-02-15 22:02] VITALS: BP 112/68
[2025-02-16 00:10] LABS: APTT 74.7 Sec (23.4-35.0)
[2025-02-16 06:03] VITALS: BP 128/83
[2025-02-16 07:11] VITALS: BP 122/71
[2025-02-16 07:13] VITALS: BMI 35.8
--- NOTE | 2025-02-16 08:51 | PTCARENOTE ---
Patient oob ambulating in the peres this morning, IV heparin infusing at 2000 units/hr, sent for nuclear stress test.
--- NOTE | 2025-02-16 09:13 | W.PN.HOSP.TC ---
Today's Communication/Plan
-
Stress test today
Assessment / Plan
Assessment / Plan
Physical Exam
General: Well Developed, Well Nourished and No Apparent Distress
HEENT: Normocephalic and Atraumatic
Respiratory: Clear to Auscultation; Negative Wheezes or Rhonchi
Cardiac: Regular Rhythm and S1/S2; Negative Murmur
GI: Soft, Nontender, Nondistended and Normal Bowel Sounds
Musculoskeletal: No Clubbing, No Cyanosis and No Edema
Neuro: Awake, alert, oriented, non focal, gait is normal.
Psych: Calm
pt is a 64 year old male
NSTEMI (chest pain after walking)--apprec cards--holding xarelto and now on heparin drip--troponin peaked at 4.4 now down to 2.0--further w/u per cards, plan for stress test Sunday but pt not sure he wants to undergo cath--lipids with Tchol 154 LDL
97--cont toprol, asa--statin started this admission as LDL not at goal
Appreciate cardiology help
Vision change in the left eye, with yesterday having arterial access and history of A-fib was therefore concern for thromboembolization or lead to a stroke or TIA need to be considered--all workup negative--pt has had this vision change off and on
for years--will cancel MRI--resolved--should follow up with outpt ophthalmology
presumed persistent A-fib: Status post ablation 02/12/25--toprol, heparin drip--remains in sinus rhythm
DVT proph--heparin drip
CODE STATUS -- full code
Total time spent to see the patient, examine the patient, review data and lab results, discuss treatment plan with patient, nursing staff around 55 minutes
Anticipated Discharge: Within 24 hours
Subjective/Interval History
-
Date of Service: February 16, 2025
No chest pain
No sob
Objective Data
-
Labs:
Laboratory Results
02/15/25 02/16/25 02/16/25
23:51 06:00 06:15
WBC Pending
Hgb Pending
Hct Pending
Plt Count Pending
APTT 74.7 H Pending
Sodium Pending
Potassium Pending
Chloride Pending
Carbon Dioxide Pending
BUN Pending
Creatinine Pending
Glucose Pending
Calcium Pending
Vital Signs:
Vital Signs
Temp Pulse Resp BP Pulse Ox
97.5 F 62 18 122/71 95
02/16/25 07:13 02/16/25 07:11 02/16/25 07:13 02/16/25 07:11 02/16/25 07:13
I&O
02/15/25 02/16/25 02/17/25
06:59 06:59 06:59
Intake Total 720 / 720
Balance 720 / 720
[2025-02-16] MEDS: LEXISCAN 0.4 MG IV (09:51)
[2025-02-16] MEDS: AMINOPHYLLINE 75 MG IV (10:12)
--- NOTE | 2025-02-16 11:49 | W.PN.CARDCBS ---
Addendum entered and electronically signed by Doreen Blackburn, 02/16/25 19:32:
[place] text update to Dr. Gardiner
Addendum entered and electronically signed by Doreen Blackburn, 02/16/25 15:10:
I saw and examined the patient.
The Chief Digital Officer's note was reviewed and I agree with the note.
Comment: Patient was seen and examined after his stress test. No further chest pain. Stress test results reviewed noting mild, small area of mid anteroseptum and apical septal ischemia. EF 66%.
General: No acute distress, AAOX3
Neck: Negative JVD
Heart: Regular, Negative S3 positive S1/S2, Negative S4, No murmur
Lungs: CTA b/l, negative wheezes/rales/rhonchi
Abd: Positive BS, NT/ND, neg rebound/rigidity/guarding
Ext:no edema
Plan:
Plan:
Chest pain post ablation with elevated troponin and coronary artery calcifications on noncardiac CT imaging
-Peak troponin 4.4; proBNP not elevated 235.
-2D echocardiogram yesterday with normal biventricular size and systolic function with no obvious regional wall motion abnormalities or significant valve pathology. No pericardial effusion
-Small, mild area of ischemia in the mid anterior septum and apical septum concerning for ischemia. No evidence of scant scar. EF 66%.
- Discussed findings with patient and his over the phone. Will plan for left heart catheterization on 02/17/[address] Andrea aware.
-Continue aspirin 81 mg daily
- LDL in admission 97�rosuvastatin 20 mg daily initiated. Will need repeat lipid profile in 3 months. Goal LDL less than 70 mg/dL.
CTA head and neck done in ED for visual disturbance was unremarkable with mild atherosclerotic calcifications of bilateral carotid bifurcations without stenosis. There is a 4 mm ground glass opacity in the right upper lobe and there is a
recommendation for a follow-up CT of the chest in 6 to 12 months.
Blood pressure stable.
Prediabetes with hemoglobin A1c 5.7%�diet modifications for low-carb/low glycemic index diet. Will need follow-up with his primary care physician.
History of PAF currently in sinus rhythm.
- Will continue IV heparin pending left heart catheterization.
- Xarelto currently held.
Original Note:
Today's Communication / Plan
-
no further CP
await Lexiscan result
Impression / Plan
-
Daylight Driller: Abdifatah
EP: Collin
Assessment:
Chest pain
Elevated troponin
A-fib s/p PVI (02/12/25)
Hypertension
Plan:
Chest pain post ablation with elevated troponin and coronary artery calcifications on noncardiac CT imaging
-Peak troponin 4.4 and trended down
-2D echocardiogram 02/14/2025 with normal biventricular size and systolic function with no obvious regional wall motion abnormalities or significant valve pathology. No pericardial effusion
-Most common explanation for his symptoms would be inflammation following PVI ablation - essentially iatrogenic myocarditis. However, differential includes coronary artery spasm, thromboembolism of a coronary artery, acute CHF or Type 1 IA.
- Will stop IV heparin. Continue high intensity statin, beta-hayley and aspirin.
-Lexiscan nuclear stress test 02/16/2025 pending
CTA head and neck done in ED for visual disturbance was unremarkable with mild atherosclerotic calcifications of bilateral carotid bifurcations without stenosis. There is a 4 mm ground glass opacity in the right upper lobe and there is a
recommendation for a follow-up CT of the chest in 6 to 12 months.
Blood pressure stable.
History of PAF currently in sinus rhythm.
- Will continue IV heparin pending results of stress test. If no significant ischemia, resume Xarelto
- Telemetry personally reviewed: Normal sinus rhythm 50s to 60s
Progress Note - Daylight Driller
Subjective
Date of Service: February 16, 2025
-no CP walking around hallways
Objective
Labs:
Labs
Hgb 12.5 g/dL (13.0-18.0) L 02/15/25 02:41
Hct 37.7 % (39.0-52.0) L 02/15/25 02:41
Plt Count 149 10^3/uL (130-400) 02/15/25 02:41
APTT 74.7 Sec (23.4-35.0) H 02/15/25 23:51
Sodium 140 mmol/L (135-145) 02/15/25 02:41
Potassium 4.2 mmol/L (3.5-5.1) 02/15/25 02:41
BUN 23 mg/dl (9-20) H 02/15/25 02:41
Creatinine 0.7 mg/dL (0.7-1.3) 02/15/25 02:41
Glucose 98 mg/dl (70-99) 02/15/25 02:41
Troponins
02/13/25 02/13/25 02/13/25
16:55 19:29 23:31
Troponin I 4.200 H* 4.110 H* 3.790 H*
02/14/25 02/14/25 02/14/25
03:58 03:58 11:03
Troponin I 4.400 H* Cancelled 4.280 H*
02/15/25
02:41
Troponin I 2.070 H*
Vital Signs and I&O:
Vital Signs
Temp Pulse Resp BP Pulse Ox
97.5 F 62 18 122/71 95
02/16/25 07:13 02/16/25 07:11 02/16/25 07:13 02/16/25 07:11 02/16/25 07:13
Vital Signs
Temp Pulse Resp BP Pulse Ox
97.5 F 62 18 122/71 95
02/16/25 07:13 02/16/25 07:11 02/16/25 07:13 02/16/25 07:11 02/16/25 07:13
Intake & Output
02/14/25 02/15/25 02/16/25 02/17/25
06:59 06:59 06:59 06:59
Intake Total 720 / 720
Output Total 1000 / 1000
Balance -1000 / -1000 720 / 720
Physical Exam
Physical Exam
GEN: No distress, awake, Ox3
HEENT: supple, anicteric, mmm
LUNGS: CTA, no wheezes/rales
CV: Reg, S1/S2, 1/6 syst LSB, no murmur
ABD: soft, BS+, NT/ND
EXT: trace LE edema
NEURO: Gross non-focal
SKIN: No rash
[2025-02-16] MEDS: TOPROL XL 50 MG PO (12:24)
[2025-02-16] MEDS: LOW STRENGTH ASPIRIN 81 MG PO (12:24)
[2025-02-16 12:26] VITALS: BP 136/70
--- NOTE | 2025-02-16 12:28 | PTCARENOTE ---
Patient returned from nuclear stress test.
[2025-02-16 13:22] LABS: APTT 66.0 Sec (23.4-35.0)
[2025-02-16 13:36] LABS: Hematocrit 42.4 % (39.0-52.0); Hemoglobin 14.2 g/dL (13.0-18.0); Mean Corp Hgb Conc. 33.5 g/dL (33.0-37.0); Mean Corpuscular Volume 92.0 fL (80.0-94.0); Platelet Count 184 10^3/uL (130-400); Red Cell Dist. Width 13.3 % (11.5-14.5)
--- NOTE | 2025-02-16 14:09 | CM ---
Chart reviewed. Patient is independent of ADLS, lives with his in a [facility] house, 3 RADHA, 0 DME. Plan is for the patient to return home. CM to follow
[2025-02-16] MEDS: HEPARIN 25000 UNITS/250 ML IV (14:54)
[2025-02-16 15:25] LABS: Blood Urea Nitrogen 17 mg/dl (9-20); Calcium 9.6 mg/dl (8.4-10.2); Carbon Dioxide 29 mmol/L (22-30); Chloride 102 mmol/L (98-107); Estimated Creatinine Clearance 121 ml/min; Glucose 95 mg/dl (70-99); Magnesium 2.2 mg/dl (1.6-2.3); Potassium 4.2 mmol/L (3.5-5.1); Sodium 138 mmol/L (135-145); eGFR > 60.00
[2025-02-16 15:39] VITALS: BP 116/73
--- NOTE | 2025-02-16 16:24 | PTCARENOTE ---
Dr. Dasilva in to speak with the patient re: nuclear stress result. Plan for cardiac cath tomorrow, to continue IV heparin and will be NPO after midnight. All questions answered by veneer glue spreader and he seems to understand and is appreciative that
this will all be communicated to his primary veneer glue spreader Dr. Gardiner.
[2025-02-16] MEDS: CRESTOR 20 MG PO (17:58)
[2025-02-16 19:01] VITALS: BP 93/49
[2025-02-16 20:07] LABS: APTT 70.1 Sec (23.4-35.0)
[2025-02-16 22:04] VITALS: BP 91/77
--- NOTE | 2025-02-16 22:34 | PTCARENOTE ---
Received patient at change of shift. SR with a first degree HB on the monitor, HR in the 60s. Heparin running as per order, see documentation. NPO at midnight. No complaints from pt at this time, call alston within reach.
[2025-02-17] VITALS (12 sets, daily range): BP systolic 101–127; BP diastolic 53–85; BMI 35.4
[2025-02-17] MEDS: HEPARIN 25000 UNITS/250 ML IV ×2 (01:56→14:45)
[2025-02-17 02:25] LABS: APTT 81.0 Sec (23.4-35.0)
[2025-02-17] MEDS: TOPROL XL 50 MG PO (08:14)
[2025-02-17] MEDS: LOW STRENGTH ASPIRIN 81 MG PO (08:14)
[2025-02-17 08:54] LABS: APTT 86.2 Sec (23.4-35.0)
--- NOTE | 2025-02-17 11:16 | CM ---
Chart reviewed. Patient is independent of ADLS, lives with his in a [address], 3 RADHA, 0 DME. Plan is for the patient to return home. CM to follow
--- NOTE | 2025-02-17 13:33 | W.PN.HOSP.TC ---
Today's Communication/Plan
-
NPO for Cath
Assessment / Plan
Assessment / Plan
Physical Exam
General: Well Developed, Well Nourished and No Apparent Distress
HEENT: Normocephalic and Atraumatic
Respiratory: Clear to Auscultation; Negative Wheezes or Rhonchi
Cardiac: Regular Rhythm and S1/S2; Negative Murmur
GI: Soft, Nontender, Nondistended and Normal Bowel Sounds
Musculoskeletal: No Clubbing, No Cyanosis and No Edema
Neuro: Awake, alert, oriented, non focal, gait is normal.
Psych: Calm
pt is a 64 year old male
NSTEMI (chest pain after walking)--apprec cards--holding xarelto and now on heparin drip--troponin peaked at 4.4 now down to 2.0--further w/u per cards, cath as stress test Sunday was positive. -lipids with Tchol 154 LDL 97--cont toprol,
asa--statin started this admission as LDL not at goal
Appreciate cardiology help
Vision change in the left eye, with yesterday having arterial access and history of A-fib was therefore concern for thromboembolization or lead to a stroke or TIA need to be considered--all workup negative--pt has had this vision change off and on
for years--will cancel MRI--resolved--should follow up with outpt ophthalmology
presumed persistent A-fib: Status post ablation 02/12/25--toprol, heparin drip--remains in sinus rhythm
DVT proph--heparin drip
CODE STATUS -- full code
Total time spent to see the patient, examine the patient, review data and lab results, discuss treatment plan with patient, nursing staff around 55 minutes
Anticipated Discharge: Within 24 hours
Subjective/Interval History
-
Date of Service: February 17, 2025
No chest pain
NPO for cath
Objective Data
-
Labs:
Laboratory Results
02/17/25 02/17/25
02:07 08:27
APTT 81.0 H 86.2 H
Vital Signs:
Vital Signs
Temp Pulse Resp BP Pulse Ox
98.0 F 60 14 121/70 100
02/17/25 11:01 02/17/25 11:03 02/17/25 11:01 02/17/25 11:03 02/17/25 11:01
I&O
02/16/25 02/17/25 02/18/25
06:59 06:59 06:59
Intake Total 920 / 920 240 / 240
Balance 920 / 920 240 / 240
[2025-02-17 16:26] LABS: ACT-LR - POC 223 Seconds (116-155)
--- NOTE | 2025-02-17 16:58 | PTCARENOTE ---
Rec'd pt from assistant laboratory director. R radial w/ external hemostasis band on. No bleeding/hematoma noted. No complaints CP/discomfort/SOB at this time. Activity restrictions reviewed w/ pt and verbalizes understanding. Currently in bed; call gamaliel w/in reach.
[2025-02-17] MEDS: NSS 1000 IV (17:00)
--- NOTE | 2025-02-17 17:46 | ITS.CL.ANGIO ---
Telecommunication Operator - Angioplasty
Angioplasty
Procedure Report:
LEFT HEART CATHETERIZATION
Date of Procedure: February 17, 2025
Procedures performed:
1: Coronary angiography
2: Percutaneous coronary intervention of left anterior descending artery with placement of a 4.0 x 22 mm Collison drug-eluting stent
3: Intravascular ultrasound imaging of the LAD
Primary Care Provider: Dr. Lita Grande
Primary Machine Fancy Stitcher: Dr. Maco Gardiner
INDICATION: The patient is a 64-year-old man with a past medical history significant for persistent atrial fibrillation and hypertension who underwent pulmonary vein isolation on February 12 and returned with a chest pain syndrome concerning for an
ACS. He had a low-level positive troponin with benign EKG and normal LV ejection fraction by echo. Nuclear perfusion scan was suspicious for anterolateral ischemia. He is referred for cardiac catheterization.
ACCESS: The patient was prepped and draped in usual sterile fashion. A 6 Mexican sheath was placed in the right radial artery using the Seldinger over the wire technique.
HEMODYNAMIC FINDINGS (mmHg):
LV(s/d,EDP): 118/13, 20
Ao(s/d,m): 118/69, 91
ANGIOGRAPHIC FINDINGS:
Single-plane Left Ventriculography in GONZALES Projection: Not done
Coronary Angiography:
Dominance: Right
Left Main: Large-caliber, mild distal luminal irregularities.
Left Anterior Descending: The left anterior descending artery is a large vessel that has tapered disease extending from the very proximal vessel to an 80% stenosis just before the first septal finishing range supervisor. The LAD gives rise to several small caliber
diagonal branches that are open. The mid LAD has a smooth 40 to 50% with distal small vessel disease in the apical LAD which has normal flow.
Left Circumflex: The circumflex is a medium caliber nondominant system that gives rise to a very high first obtuse marginal branch and courses in a ramus distribution. This vessel has a hazy proximal 50 to 60% stenosis with normal distal flow. The
true circumflex has a smooth 50% stenosis after the OM1 takeoff with moderate luminal irregularities in the mid vessel and normal flow and a large distal obtuse marginal branch.
Right Coronary: The right coronary artery is a very large caliber dominant vessel that has mild luminal irregularities throughout the AV groove with a smooth 30-40% stenosis at the distal bifurcation of a large posterior left ventricular branch
system and a medium caliber posterior descending artery. All vessels have JOVAN-3 flow.
Percutaneous Coronary Intervention (PCI): In light of the above angiographic findings, I elected to proceed with a PCI of the LAD. This was clearly obstructive and jeopardizing a large territory of ischemia that apparently was underestimated on the
nuclear perfusion scan. The patient was pretreated with aspirin. Unfractionated heparin was given. A loading dose of clopidogrel 600 mg was given on the table at the end of the procedure. A 6 Mexican XB 4.0 guiding catheter was used to engage the
left main. A short Hi-Torque floppy wire was advanced down the LAD. Predilation was performed with a 3.0 x 15 mm balloon. Next a 4.0 x 22 mm Collison drug-eluting stent was deployed at 14 mayte for 20 seconds. Intravascular ultrasound imaging was
performed after stent deployment and showed excellent stent apposition.
FINAL RESULT: 0% in-stent residual stenosis with a good angiographic result and JOVAN-3 flow in all vessels.
Fluoroscopy Time (min): 7.7
Radiation Dose (mGy): 1265
DAP (Gy.cm2): 60
Closure device: None. A TR band was applied for hemostasis at the right wrist.
Complications: None.
ASSESSMENT:
1: Successful PCI of the LAD with placement of drug-eluting stent as described above.
CONCLUSIONS and RECOMMENDATIONS:
1: Routine post PCI medical therapy and monitoring.
2: Given the fact that he is less than a month out from PVI I think he should receive full dose Xarelto 20 mg daily for at least 90 days post PVI. I will plan to also give him clopidogrel 75 mg daily and aspirin 81 mg daily for a week followed by
full dose Xarelto 20 mg daily and then clopidogrel 75 mg daily. After 90 days we could consider dropping the dose of Xarelto or moving to dual antiplatelet therapy depending on his atrial fibrillation burden. Will resume Xarelto 20 mg daily in
a.m. tomorrow.
Vazquez Andrea M.D.
[2025-02-17] MEDS: CRESTOR 20 MG PO (18:06)
--- NOTE | 2025-02-17 22:39 | PTCARENOTE ---
Received patient at change of shift. SR with a first degree on the monitor, HR in the 60s. R radial band removed as per protocol. R radial dressing CDI, no evidence of hematoma. No complaints from pt at this time, call alston within reach.
--- NOTE | 2025-02-18 02:38 | DOWNTIME ---
There was a [employer] Client Wardrobe Manager Downtime on 02/18/2025 from 0100 to 02/18/2025 at 0215. Downtime documentation of patient's care, including medication administrations, has been reconciled in the electronic record per guidelines. Refer to the
patient's paper chart under the miscellaneous tab to see printed paper medication records and downtime forms.
[2025-02-18 04:01] VITALS: BP 137/88
[2025-02-18 04:24] VITALS: BMI 35.4
[2025-02-18 04:46] LABS: Hematocrit 40.1 % (39.0-52.0); Hemoglobin 13.5 g/dL (13.0-18.0); Mean Corp Hgb Conc. 33.7 g/dL (33.0-37.0); Mean Corpuscular Volume 93.7 fL (80.0-94.0); Platelet Count 179 10^3/uL (130-400); Red Cell Dist. Width 13.2 % (11.5-14.5)
[2025-02-18 05:10] LABS: Blood Urea Nitrogen 21 mg/dl (9-20); Calcium 9.4 mg/dl (8.4-10.2); Carbon Dioxide 26 mmol/L (22-30); Chloride 106 mmol/L (98-107); Estimated Creatinine Clearance 107 ml/min; Glucose 96 mg/dl (70-99); Potassium 4.4 mmol/L (3.5-5.1); Sodium 139 mmol/L (135-145); eGFR > 60.00
[2025-02-18 06:49] VITALS: BP 114/69
[2025-02-18] MEDS: XARELTO 20 MG PO (07:39)
[2025-02-18] MEDS: TOPROL XL 50 MG PO (07:40)
[2025-02-18] MEDS: PLAVIX 75 MG PO (07:40)
[2025-02-18] MEDS: LOW STRENGTH ASPIRIN 81 MG PO (07:40)
--- NOTE | 2025-02-18 09:17 | W.PN.HOSP.TC ---
Today's Communication/Plan
-
dc
Assessment / Plan
Assessment / Plan
Physical Exam
General: Well Developed, Well Nourished and No Apparent Distress
HEENT: Normocephalic and Atraumatic
Respiratory: Clear to Auscultation; Negative Wheezes or Rhonchi
Cardiac: Regular Rhythm and S1/S2; Negative Murmur
GI: Soft, Nontender, Nondistended and Normal Bowel Sounds
Musculoskeletal: No Clubbing, No Cyanosis and No Edema
Neuro: Awake, alert, oriented, non focal, gait is normal.
Psych: Calm
pt is a 64 year old male
NSTEMI (chest pain after walking)--apprec cards--
c/w stress test: positive
s/p LHC 02/[address] Andrea, s/p stent placement left anterior descending artery/ drug-eluting stent . Right radial access; looks normal , good peripheral pulse, no tenderness.
d/w grid trimmer regarding dc medications.
Appreciate cardiology help
Vision change in the left eye, with yesterday having arterial access and history of A-fib was therefore concern for thromboembolization or lead to a stroke or TIA need to be considered--all workup negative--pt has had this vision change off and on
for years--will cancel MRI--resolved--should follow up with outpt ophthalmology
Persistent A-fib: Status post ablation 02/12/25--toprol, s/p heparin drip--remains in sinus rhythm, now on Xarelto
DVT proph--Xarelto
CODE STATUS -- full code
Total discharge time spent to see the patient, examine the patient, review data and lab results, discuss discharge plan with patient, nursing staff around 65 minutes
Anticipated Discharge: Today
Subjective/Interval History
-
Date of Service: February 18, 2025
No chest pain
No sob
No headache
Objective Data
-
Labs:
Laboratory Results
02/18/25
04:26
WBC 7.4
Hgb 13.5
Hct 40.1
Plt Count 179
Sodium 139
Potassium 4.4
Chloride 106
Carbon Dioxide 26
BUN 21 H
Creatinine 0.9
Glucose 96
Calcium 9.4
Vital Signs:
Vital Signs
Temp Pulse Resp BP Pulse Ox
98 F 64 20 114/69 98
02/18/25 06:49 02/18/25 06:49 02/18/25 06:49 02/18/25 06:49 02/18/25 06:49
I&O
02/17/25 02/18/25 02/19/25
06:59 06:59 06:59
Intake Total 240 / 240 200 / 200
Balance 240 / 240 200 / 200
--- NOTE | 2025-02-18 10:57 | PTCARENOTE ---
IV and tele removed. Discharge instructions reviewed w/ pt and verbalizes understanding. D/c to home.
[2025-02-18 12:18] LABS: ACT-LR - POC > 397 Seconds (116-155)
--- NOTE | 2025-02-18 12:40 | W.PN.CARDCBS ---
Today's Communication / Plan
-
Stable cardiology status for discharge
Impression / Plan
-
Audience Development Manager: Abdifatah
EP: Collin
Assessment:
Chest pain
CAD status post PCI and drug-eluting stent of LAD 02/17/2025
Non-UT troponin elevation
A-fib s/p PVI (02/12/25)
Hypertension
Abnormal CT with 4 mm ground glass opacity in right upper lobe
Lexiscan sestamibi stress test 02/16/2025: Mid anteroseptal and apical septal ischemia
Plan:
Stable cardiology status for discharge
Follow-up has been arranged
Repeat chest CT is recommended in 6 months
Progress Note - Audience Development Manager
Subjective
Date of Service: February 18, 2025
No complaints
Objective
Labs:
02/18/25 04:26
02/18/25 04:26
Labs
Hgb 13.5 g/dL (13.0-18.0) 02/18/25 04:26
Hct 40.1 % (39.0-52.0) 02/18/25 04:26
Plt Count 179 10^3/uL (130-400) 02/18/25 04:26
APTT 86.2 Sec (23.4-35.0) H 02/17/25 08:27
Sodium 139 mmol/L (135-145) 02/18/25 04:26
Potassium 4.4 mmol/L (3.5-5.1) 02/18/25 04:26
BUN 21 mg/dl (9-20) H 02/18/25 04:26
Creatinine 0.9 mg/dL (0.7-1.3) 02/18/25 04:26
Glucose 96 mg/dl (70-99) 02/18/25 04:26
Vital Signs and I&O:
Vital Signs
Temp Pulse Resp BP Pulse Ox
98 F 59 20 114/69 98
02/18/25 06:49 02/18/25 08:00 02/18/25 06:49 02/18/25 06:49 02/18/25 06:49
Vital Signs
Temp Pulse Resp BP Pulse Ox
98 F 59 20 114/69 98
02/18/25 06:49 02/18/25 08:00 02/18/25 06:49 02/18/25 06:49 02/18/25 06:49
Intake & Output
02/16/25 02/17/25 02/18/25 02/19/25
06:59 06:59 06:59 06:59
Intake Total 920 / 920 240 / 240 200 / 200
Balance 920 / 920 240 / 240 200 / 200
Physical Exam
Physical Exam
General: Well developed, well nourished in NAD.
Neck: Supple, no JVD, HJR, carotids +2 B/L, no bruits bilaterally.
Heart: Non displaced PMI, RRR, no murmurs, No S3, S4, no rubs.
Lungs: Clear to auscultation bilaterally, no wheeze, rhonchi, rubs bilaterally,
normal expiratory phase.
Extremities: No clubbing, cyanosis or edema bilaterally.
Neuro: Grossly nonfocal, awake, alert and oriented x3.
--- NOTE | 2025-02-18 13:45 | W.DCSUMMARY ---
Discharge Summary
Discharge Data
Date of Admission: 02/13/25
Date of Discharge: 02/18/25
-
Pending Results: No
Hospital Course
64 years old male presented to the hospital for chest pain. He described his chest pain as exertional. Initial troponin was found to be elevated at 4.2. Patient complained of vision change in the left eye, CTA of the head/neck with no evidence of
acute stroke. Chest radiography was unremarkable. EKG showed sinus rhythm with no obvious ischemic changes. Patient was evaluated by recruitment and outreach assistant. He was started on intravenous heparin with holding of Xarelto. Echocardiogram showed normal
biventricular size and function with left ventricular ejection fraction 66%. Patient did not have recurrent chest pain. Troponin started trending down. Nuclear stress test showed abnormal myocardial perfusion. Patient underwent left heart
catheterization through right wrist access with successful stenting of the left anterior descending artery with drug-eluting stent. Rubber Down recommended aspirin, Plavix and Xarelto for 1 week then to continue with the Plavix and Xarelto.
Patient was advised to follow with recruitment and outreach assistant for further recommendation. Patient remained hemodynamically stable. He was able to ambulate without discomfort. Patient was discharged home in a stable condition.
Discharge Plan
-
Patient Disposition: Home (Routine Discharge)
Discharge Diagnosis/Procedures: Angioplasty and stent to Left Anterior Descending artery
You had cardiac stress test and left heart catheterization. Rubber Down followed. Take aspirin, Plavix and Xarelto for 1 week. Stop aspirin then continue with the Plavix and Xarelto, follow-up with your recruitment and outreach assistant for further recommendations.
Condition: Good
Diet: Low Cholesterol
Driving Restrictions: No driving for 24 hours
Stand Alone Forms: DC Instructions- Cath/EP Lab
Referrals:
[facility]. Cardiac Rehab [Outside] - 03/13/25 9:30 am
Referral Note: Cardiac Rehab Orientation appointment is on 03/13/25 at 9:30 am
The Cardiac Rehab gym is located on the first floor of the [facility].
Maco Gardiner, DO [Affiliate, Cardiology] - in three to four weeks
UNKNOWN - PT DOES,NOT KNOW [Family Provider]
Prescriptions:
New
clopidogrel 75 mg Tablet
75 mg PO DAILY Qty: 30 0RF
aspirin 81 mg Tablet,Chewable
81 mg PO DAILY Qty: 7 0RF
Continued
metoprolol succinate 50 mg Capsule,Sprinkle,Er 24hr
50 mg PO DAILY
Xarelto 20 mg Tablet
20 mg PO DAILY Qty: 0 0RF
Discharge Orders:
Discharge Patient (As Directed); Ordered 02/18/25
Ordered By: Miguel Rebolledo
Care Plan Goals
Care Plan Goals:
Problem: Readiness for enhanced knowledge related to diagnosis and treatment plan
Goal: Understand your diagnosis and treatment plan needs, including medications if applicable.
Instructions: Know your diagnosis, underlying causes and treatment plan options, including medications if applicable. Consult with your health care team to learn about your diagnosis and treatment plan, including medications if applicable.
Discharge Date and Time
Discharge Date/Time: 02/18/25 10:49
Print Language: CROATIAN
== END 2025-02-18 10:49 | disposition home or self-care (01) | DRG 322 ==
LOC: IVU 23:26
PROVIDERS: Emergency Medicine; Internal Medicine; Internal Medicine Cardiovascular Disease; Internal Medicine Interventional Cardiology; ADMITTING PHYSICIAN Internal Medicine; ATTENDING PHYSICIAN Internal Medicine; CONSULT PHYSICIAN Internal Medicine Cardiovascular Disease; EMERGENCY PHYSICIAN Emergency Medicine
PROC: 4A12XM4 Monitoring of Cardiac Stress, External Approach (ICD-10-PCS; 2025-02-16)
PROC: 3E033HZ Introduction of Radioactive Substance into Peripheral Vein, Percutaneous Approach (ICD-10-PCS; 2025-02-16)
PROC: 4A023N7 Measurement of Cardiac Sampling and Pressure, Left Heart, Percutaneous Approach (ICD-10-PCS; 2025-02-17)
PROC: B240ZZ3 Ultrasonography of Single Coronary Artery, Intravascular (ICD-10-PCS; 2025-02-17)
PROC: B2111ZZ Fluoroscopy of Multiple Coronary Arteries using Low Osmolar Contrast (ICD-10-PCS; 2025-02-17)
PROC: 027034Z Dilation of Coronary Artery, One Artery with Drug-eluting Intraluminal Device, Percutaneous Approach (ICD-10-PCS; 2025-02-17)
DX: I21.4 Non-ST elevation (NSTEMI) myocardial infarction (principal); I48.19 Other persistent atrial fibrillation; Z79.01 Long term (current) use of anticoagulants; I10 Essential (primary) hypertension; Z82.49 Family history of ischemic heart disease and other diseases of the circulatory system; I25.10 Atherosclerotic heart disease of native coronary artery without angina pectoris
CPT/HCPCS: 70496; 70498; 71045; 78452; 80048; 80053; 80061; 83036; 83735; 83880; 84484; 85025; 85027; 85347; 85730; 92610; 92978; 93005; 93017; 93306; 93458; 96365; 96366; 97161; 99285; A9500; C1725; C1753; C1769; C1874; C1887; C1894; C9600; J2785; Q9967

== ENCOUNTER 2025-04-01 15:25 | Outpatient (RCR) | payer BC, SELFPAY | END 2025-04-01 23:59 | disposition home or self-care (01) | LOC: CRHB 15:25 | PROVIDERS: ATTENDING PHYSICIAN Internal Medicine Interventional Cardiology | DX: I48.91 Unspecified atrial fibrillation (principal); Z95.5 Presence of coronary angioplasty implant and graft | CPT/HCPCS: 93797; 93798 ==

== ENCOUNTER 2025-04-27 17:32 | Outpatient (RCR) | payer BC, SELFPAY | END 2025-04-27 23:59 | disposition home or self-care (01) | LOC: CRHB 17:32 | PROVIDERS: ATTENDING PHYSICIAN Internal Medicine Interventional Cardiology | DX: I48.91 Unspecified atrial fibrillation (principal); I25.10 Atherosclerotic heart disease of native coronary artery without angina pectoris; Z95.5 Presence of coronary angioplasty implant and graft | CPT/HCPCS: 93797; 93798 ==

== ENCOUNTER 2025-06-02 15:59 | Outpatient (RCR) | payer BC, SELFPAY | END 2025-06-02 23:59 | disposition home or self-care (01) | LOC: CRHB 15:59 | PROVIDERS: ATTENDING PHYSICIAN Internal Medicine Interventional Cardiology | DX: I25.10 Atherosclerotic heart disease of native coronary artery without angina pectoris (principal); Z95.5 Presence of coronary angioplasty implant and graft; I48.91 Unspecified atrial fibrillation | CPT/HCPCS: 93798 ==